=== PATIENT | female | born 1995 | race Caucasian/White ===

== ENCOUNTER 2021-03-22 14:17 | Emergency (ER) | payer OTHER ==
[~2021-03-22] VITALS: Ht 149.9 cm; Wt 85.0 kg
[2021-03-22 14:55] LABS: BASOPHILS % (AUTO) 1 % (0-1); EOSINOPHILS % (AUTO) 6 % (1-7); LYMPHOCYTES % (AUTO) 33 % (22-44); MD NO; MEAN CORPUSCULAR HEMOGLOBIN 28.7 pg (27.0-34.8); MEAN CORPUSCULAR HGB CONC 33.9 g/dL (32.4-35.8); MEAN PLATELET VOLUME 7.3 fL (7.4-10.4); MONOCYTES % (AUTO) 6 % (2-9); NEUTROPHILS % (AUTO) 54 % (42-75); PLATELET COUNT 294 x10^3/uL (130-400); RED BLOOD COUNT 4.83 x10^6/uL (3.82-5.3); RED CELL DISTRIBUTION WIDTH 12.6 % (9.6-15.2)
[2021-03-22 15:01] LABS: ALANINE AMINOTRANSFERASE 91 U/L (12-78); ALBUMIN 4.1 g/dL (3.4-5.0); ANION GAP 6 mmol/L (5-15); CALCIUM 8.7 mg/dL (8.5-10.1); CHLORIDE 107 mmol/L (98-107); CREATININE 0.61 mg/dL (0.55-1.02)
[2021-03-22 15:06] LABS: ALKALINE PHOSPHATASE 72 U/L (45-117); BILIRUBIN,TOTAL 0.4 mg/dL (0.2-1.0); TOTAL PROTEIN 7.4 g/dL (6.4-8.2)
--- NOTE | 2021-03-22 16:29 | NUR ---
PT CAME AFTER HAVING WHAT HER BF THOUGHT MAY HAVE BEEN A SZ. PT HAS NO RECOLLECTION OF EVENT BESIDES "I FELT LIKE I WAS CHOKING ON MY TONGUE". PT WAS SITTING IN A CHAIR AND DID NOT FALL. PT DENIES HX OF SZ. PT RESTING IN GURNEY. SZ PRECAUTIONS IN PLACE. BEDSIDE FOR ASSESSMENT
--- NOTE | 2021-03-22 16:52 | NUR ---
US IN WITH PT AT THIS TIME
[2021-03-22 18:03] VITALS: BP 113/62
== END 2021-03-22 20:14 | disposition home or self-care (01) ==
LOC: ED 18:59
DX: R10.84 Generalized abdominal pain (principal); M62.82 Rhabdomyolysis; R55 Syncope and collapse
CPT/HCPCS: 36415; 70450; 76700; 80053; 82550; 83690; 84703; 85025; 93005; 99285

== ENCOUNTER 2021-06-11 15:20 | Emergency (ER) | payer MEDICAID, OTHER ==
[~2021-06-11] VITALS: Ht 149.9 cm; Wt 88.0 kg
[2021-06-11 16:14] LABS: BASOPHILS % (AUTO) 1 % (0-1); EOSINOPHILS % (AUTO) 4 % (1-7); LYMPHOCYTES % (AUTO) 44 % (22-44); MEAN CORPUSCULAR HEMOGLOBIN 28.3 pg (27.0-34.8); MEAN CORPUSCULAR HGB CONC 33.9 g/dL (32.4-35.8); MEAN PLATELET VOLUME 7.5 fL (7.4-10.4); MONOCYTES % (AUTO) 13 % (2-9); NEUTROPHILS % (AUTO) 39 % (42-75); PLATELET COUNT 215 x10^3/uL (130-400); RED BLOOD COUNT 5.51 x10^6/uL (3.82-5.3); RED CELL DISTRIBUTION WIDTH 12.5 % (9.6-15.2)
--- NOTE | 2021-06-11 16:16 | NUR ---
PATIENT CASE COORDINATOR: PT TO ROOM FROM LOBBY
[2021-06-11 16:28] LABS: ALANINE AMINOTRANSFERASE 18 U/L (12-78); ALBUMIN 4.2 g/dL (3.4-5.0); ANION GAP 7 mmol/L (5-15); CALCIUM 8.8 mg/dL (8.5-10.1); CHLORIDE 107 mmol/L (98-107); CREATININE 0.74 mg/dL (0.55-1.02)
--- NOTE | 2021-06-11 16:32 | NUR ---
DR GOLDEN AT BEDSIDE, PT ASSESSMENT AND POC DISCUSSED. QUESTIONS ANSWERED. VSS, CALL LIGHT W/I REACH
[2021-06-11 16:33] LABS: ALKALINE PHOSPHATASE 64 U/L (45-117); BILIRUBIN,TOTAL 0.4 mg/dL (0.2-1.0); TOTAL PROTEIN 7.8 g/dL (6.4-8.2); TROPONIN I < 0.015 ng/mL (0.000-0.045)
--- NOTE | 2021-06-11 16:51 | NUR ---
PIV EST AND IVF INFUSING W/O DIFFICULTY
[2021-06-11] MEDS ORDERED: SODIUM CHLORIDE FLUSH 10ML SYR IVF ONE (17:30)
[2021-06-11] MEDS ORDERED: SODIUM CHLORIDE 0.9% 1,000ML IVBOLUS ONE (17:30)
[2021-06-11 18:15] VITALS: BP 126/64
--- NOTE | 2021-06-11 18:16 | NUR ---
Patient/Caregiver given discharge instructions and they have confirmed that they understand the instructions. Patient ambulatory with steady gait. NAD, all questions answered appropriately, denies additional needs at this time. No personal belongings left in room after discharge.
== END 2021-06-11 18:17 | disposition home or self-care (01) ==
LOC: ED 17:44
DX: R55 Syncope and collapse (principal); R19.7 Diarrhea, unspecified; R06.02 Shortness of breath
CPT/HCPCS: 36415; 71045; 80053; 83735; 84436; 84443; 84484; 84703; 85025; 93005; 96360; 99285; J7030